=== PATIENT | female | born 1945 | race Caucasian/White ===

== ENCOUNTER → 2018-04-28 | Outpatient (REF) | payer MEDICARE ==
[~2018-04-28] VITALS: Ht 170.2 cm; Wt 72.6 kg
[~2018-04-28] MED LIST: ASPIRIN ENTERIC81 MG PO; CALCIUM + D600 MG PO; FISH OIL1 CAP PO; SIMVASTATIN40 MG PO
[2018-04-28 14:04] VITALS: BP 142/80
== END | disposition home or self-care (01) ==
LOC: PO 07:53 → ORM 08:00
PROVIDERS: ATTEND Surgery
DX: Z01.818 Encounter for other preprocedural examination (principal); Z12.11 Encounter for screening for malignant neoplasm of colon; Z98.890 Other specified postprocedural states

== ENCOUNTER 2018-05-04 07:41 | Day surgery (SDC) | payer MEDICARE ==
[2018-05-04 10:32] VITALS: BP 123/70
--- NOTE | 2018-05-12 14:06 | NUR ---
05/12/18 - PATIENT PHONED REQUESTING RESULTS FROM COLONOSCOPY. I SPOKE WITH DR CISNEROS AND HE STATED THE RESULT WAS BENIGN AND THAT SHE DOES NOT ANOTHER COLONOSCOPY FOR 10 YEARS. I RELAYED THE MESSAGE TO THE PATIENT AND SHE WAS VERY HAPPY.
== END 2018-05-04 10:50 | disposition home or self-care (01) ==
LOC: ENDO 07:41
PROVIDERS: ATTEND Surgery
PROC: 0DBM8ZX Excision of Descending Colon, Via Natural or Artificial Opening Endoscopic, Diagnostic (ICD-10-PCS; principal; 2018-05-04)
DX: R19.5 Other fecal abnormalities (principal); K57.30 Diverticulosis of large intestine without perforation or abscess without bleeding; K63.5 Polyp of colon; K64.8 Other hemorrhoids; E78.00 Pure hypercholesterolemia, unspecified